=== PATIENT | male | born 2000 | race Caucasian/White ===

== ENCOUNTER 2020-11-14 19:02 | Emergency (ER) | payer SELFPAY ==
[~2020-11-14] VITALS: Ht 167.6 cm; Wt 111.3 kg
[2020-11-14 19:10] VITALS: BP 150/87
[2020-11-14] MEDS ORDERED: CEPH500T PO (19:44)
--- NOTE | 2020-11-14 19:44 | PHYS DOC ---
Past History Past Medical History: No Pertinent History, Other Past Surgical History: No Surgical History Smoking: Non-smoker Additional Smoking Information: 1/2 PACK/DAY Alcohol Use: Occasionally Drug Use: Marijuana General Adult EDM: Chief Complaint: SKIN RASH/ABSCESS HPI: HPI: Patient is a 19-year-old male who presents with right-sided facial pain. Patient states "on Sunday my face started hurting and I noticed I had a bump by my cheek". Patient reports taking an Aleve on Sunday with little relief. Patient denies any issues with swallowing. Denies shortness of breath. Denies fever. Denies any health history. Review of Systems: Review of Systems: Constitutional: Denies fever or chills Eyes: Denies change in visual acuity HENT: Denies nasal congestion or sore throat Respiratory: Denies cough or shortness of breath Cardiovascular: Denies chest pain or edema GI: Denies abdominal pain, nausea, vomiting, bloody stools or diarrhea : Denies dysuria Musculoskeletal: Denies back pain or joint pain Integument: Reports bump to the right side of his face, pain Neurologic: Denies headache, focal weakness or sensory changes Endocrine: Denies polyuria or polydipsia Lymphatic: Denies swollen glands Psychiatric: Denies depression or anxiety Allergies: Allergies: Allergies Coded Allergies Type Severity Reaction Last Updated Verified No Known Drug Allergies 11/02/14 No Physical Exam: PE: Constitutional: Well developed, well nourished, no acute distress, non-toxic appearance. [] HENT: Normocephalic, atraumatic, bilateral external ears normal, oropharynx moist, no oral exudates, nose normal. [] Eyes: PERRLA, EOMI, conjunctiva normal, no discharge. [] Neck: Normal range of motion, no tenderness, supple, no stridor. [] Cardiovascular:Heart rate regular rhythm, no murmur [] Lungs & Thorax: Bilateral breath sounds clear to auscultation [] Abdomen: Bowel sounds normal, soft, no tenderness, no masses, no pulsatile masses. [] Skin: Warm, dry, no erythema, swelling to right side of cheek Back: No tenderness, no CVA tenderness. [] Extremities: No tenderness, no cyanosis, no clubbing, ROM intact, no edema. [] Neurologic: Alert and oriented X 3, normal motor function, normal sensory function, no focal deficits noted. [] Psychologic: Affect normal, judgement normal, mood normal. [] Current Patient Data: Vital Signs: Vital Signs Date Time Temp Pulse Resp B/P (MAP) Pulse Ox O2 Delivery O2 Flow Rate FiO2 11/14/20 19:10 97.8 104 20 150/87 (108) 97 Room Air EKG: EKG: [] Radiology/Procedures: Radiology/Procedures: [] Heart Score: C/O Chest Pain: No Risk Factors: Risk Factors: DM, Current or recent (<one month) smoker, HTN, HLP, family history of CAD, obesity. Risk Scores: Score 0 - 3: 2.5% MACE over next 6 weeks - Discharge Home Score 4 - 6: 20.3% MACE over next 6 weeks - Admit for Clinical Observation Score 7 - 10: 72.7% MACE over next 6 weeks - Early Invasive Strategies Course & Med Decision Making: Course & Med Decision Making Pertinent Labs and Imaging studies reviewed. (See chart for details) [] Patient is complaining of facial pain on the right side along with a lump. Patient most likely has a infected hair follicle. Starting patient on cephalexin to treat infection. Patient instructed to take ibuprofen for discomfort. If symptoms do not improve patient needs to follow back up with PCP or return to the emergency room for further evaluation. Mercedes Disclaimer: Mercedes Disclaimer: This electronic medical record was generated, in whole or in part, using a voice recognition dictation system. Departure Departure: Impression: Primary Impression: Hair follicle infection Disposition: 01 DC HOME SELF CARE/HOMELESS Condition: STABLE Referrals: PCP,NO (PCP) Patient Instructions: Skin Infections Additional Instructions: Please take ibuprofen at home for discomfort. I have prescribed you an antibiotic to take, please take as directed. If symptoms do not improve please follow-up with your PCP or return to the emergency room. EMERGENCY DEPARTMENT GENERAL DISCHARGE INSTRUCTIONS Thank you for coming to [facility] (ED) today and trusting us with you care. We trust that you had a positivie experience in our Emergency Department. If you wish to speak to the department management, you may call the director at [phone]. YOUR FOLLOW UP INSTRUCTIONS ARE FOLLOWS: 1. Do you have a private Doctor? If you do not have a private doctor, please ask for a resource list of physicians or clinics that may be able to assist you with follow up care. 2. The Emergency Physician has interpreted your x-rays. The X-Ray specialist will also review them. If there is a change in the findings, you will be notified in 48 hours when at all possible. 3. A lab test or culture has been done, your results will be reviewed and you will be notified if you need a change in treatment. ADDITIONAL INSTRUCTIONS AND INFORMATION: 1. Your care today has been supervised by a physician who is specially trained in emergency care. Many problems require more than one evaluation for a complete diagnosis and treatment. We recommend that you schedule your follow up appointment as recommended to ensure complete treatment of you illness or injury. If you are unable to obtain follow up care and continue to have a problem, or if your condition worsens, we recommend that you return to the ED. 2. We are not able to safely determine your condition over the phone nor are we able to give sound medical advice over the phone. For these safety reasons, if you call for medical advice we will ask you to come to the ED for further evaluation. 3. If you have any questions regarding these discharge instructions please call the ED at [phone]. SAFETY INFORMATION: In the interest of safety, wellness, and injury prevention; we encourage you to wear your sealbelt, if you smoke; quite smoking, and we encourage family to use a protective helmet for bicycling and other sporting events that present an increased risk for head injury. IF YOUR SYMPTOMS WORSEN OR NEW SYMPTOMS DEVELOP, OR YOU HAVE CONCERNS ABOUT YOUR CONDITION; OR IF YOUR CONDITION WORSENS WHILE YOU ARE WAITING FOR YOUR FOLLOW UP APPOINTMENT; EITHER CONTACT YOUR PRIMARY CARE DOCTOR, THE PHYSICIAN WHOSE NAME AND NUMBER YOU WERE GIVEN, OR RETURN TO THE ED IMMEDIATELY. Scripts Cephalexin (CEPHALEXIN) 500 Mg Tablet 500 MG PO BID for infection for 5 Days, #10 TAB Prov: LANI RODRIGUEZ APRN 11/14/20 LANI RODRIGUEZ APRN Nov 14, 2020 19:44
[2020-11-14] MEDS ORDERED: CEPHALEXIN 250 MG CAPSULE PO ONE (19:45)
== END 2020-11-14 20:05 | disposition home or self-care (01) ==
LOC: ER 19:02
DX: L73.8 Other specified follicular disorders (principal); F17.200 Nicotine dependence, unspecified, uncomplicated
CPT/HCPCS: 99283

== ENCOUNTER 2021-06-27 19:44 | Emergency (ER) | payer SELFPAY ==
[~2021-06-27] VITALS: Ht 167.6 cm; Wt 113.6 kg
[~2021-06-27 19:44] MED LIST: CEPH500T PO
[2021-06-27 20:24] VITALS: BP 145/87
[2021-06-27] MEDS ORDERED: IV NORMAL SALINE 1,000ML 1,000 ML IV ONE (20:30)
--- NOTE | 2021-06-27 20:42 | PHYS DOC ---
Past History Past Medical History: No Pertinent History, Other Additional Past Medical Histor: heart valve "issue", describes as prolapse, childhood onset (DRE PORTILLO DESKTOP ANALYST) Past Surgical History: Tonsillectomy (DER PORTILLO DESKTOP ANALYST) Smoking: Non-smoker Additional Smoking Information: smokes marijuana Alcohol Use: None Drug Use: Marijuana (DRE PORTILLO DESKTOP ANALYST) Adult General Chief Complaint Chief Complaint: PSYCH EVALUATION HPI HPI Patient is a 20-year-old male patient presented to the ED today with multiple complaints. Patient states his heart is racing, he states his " thoughts are racing", symptoms have been going on for 2 to 4 days. Patient states he has not been able to sleep for almost 40 hours though he states he has been in bed for 40 hours. Denies any chest pain, shortness of breath. Denies any fever. Denies any coughing or congestion. Denies any suicidal or homicidal ideations. He continues to state "I need to knock me out i have not slept for days". He states he is a frequent user of marijuana but has not used it for a couple days (DRE PORTILLO DESKTOP ANALYST) Review of Systems Review of Systems Constitutional: Denies fever or chills [] Eyes: Denies change in visual acuity, redness, or eye pain [] HENT: Denies nasal congestion or sore throat [] Respiratory: Denies cough or shortness of breath [] Cardiovascular: reports racing heart GI: Denies abdominal pain, nausea, vomiting, bloody stools or diarrhea [] : Denies dysuria or hematuria [] Musculoskeletal: Denies back pain or joint pain [] Integument: Denies rash or skin lesions [] Neurologic: Denies headache, focal weakness or sensory changes [] Psych: reports racing thoughts All other systems were reviewed and found to be within normal limits, except as documented in this note. (DRE PORTILLO DESKTOP ANALYST) Current Medications Current Medications Current Medications Medications (Trade) Dose Ordered Sig/Lauren Start Time Stop Time Status Last Admin Dose Admin Sodium Chloride 1,000 ml @ 1,000 mls/hr 1X ONCE 06/27/21 20:30 06/27/21 21:29 (DRE PORTILLO DESKTOP ANALYST) Allergies Allergies Allergies Coded Allergies Type Severity Reaction Last Updated Verified No Known Drug Allergies 11/02/14 No (DRE PORTILLO DESKTOP ANALYST) Physical Exam Physical Exam Constitutional: Well developed, well nourished, no acute distress, non-toxic appearance. [] HENT: Normocephalic, atraumatic, bilateral external ears normal, oropharynx moist, no oral exudates, nose normal. [] Eyes: PERRLA, EOMI, conjunctiva normal, no discharge. [] Neck: Normal range of motion, no tenderness, supple, no stridor. [] Cardiovascular:Heart rate regular rhythm, no murmur [] Lungs & Thorax: Bilateral breath sounds clear to auscultation [] Abdomen: Bowel sounds normal, soft, no tenderness, no masses, no pulsatile masses. [] Skin: Warm, dry, no erythema, no rash. [] Back: No tenderness, no CVA tenderness. [] Extremities: No tenderness, no cyanosis, no clubbing, ROM intact, no edema. [] Neurologic: Alert and oriented X 3, normal motor function, normal sensory function, no focal deficits noted. [] Psychologic: Affect normal, judgement normal, mood normal. [] (DRE PORTILLO DESKTOP ANALYST) Current Patient Data Vital Signs Vital Signs Date Time Temp Pulse Resp B/P (MAP) Pulse Ox O2 Delivery O2 Flow Rate FiO2 06/27/21 20:24 98.4 88 20 145/87 (106) 98 Room Air (DRE PORTILLO DESKTOP ANALYST) EKG EKG [address] Beckwith sinus rhythm heart rate 75 no STEMI [] (DRE PORTILLO DESKTOP ANALYST) Radiology/Procedures Radiology/Procedures []PROCEDURE: CHEST AP ONLY EXAMINATION: Chest radiograph. VIEWS: Single AP view of the chest COMPARISON: None INDICATION:20 years, Male, tachycardia. FINDINGS: Normal cardiomediastinal silhouette. No focal consolidation. No pleural effusion or pneumothorax. No acute osseous process. IMPRESSION: No acute cardiopulmonary process. Electronically signed by: Fallon Dao DO (06/27/2021 9:52 PM) [facility] DICTATED AND SIGNED BY: FALLON DAO DO DATE: 06/27/212151 CC: EMERGENCY,DEPARTMENT; DRE PORTILLO DESKTOP ANALYST; PCP,NO ~MTH0 0 (DRE PORTILLO DESKTOP ANALYST) Heart Score C/O Chest Pain: N/A Risk Factors: Risk Factors: DM, Current or recent (<one month) smoker, HTN, HLP, family history of CAD, obesity. Risk Scores: Risk Factors: DM, Current or recent (<one month) smoker, HTN, HLP, family history of CAD, obesity. (DRE PORTILLO APRN) Course & Med Decision Making Course & Med Decision Making Pertinent Labs and Imaging studies reviewed. (See chart for details) This is a 20-year-old male patient presenting to the ED today stating his thoughts are racing as well as his heart symptoms for 4 days. Denies any suicidal homicidal ideations. EKG, labs, chest x-ray negative for any acute findings Nevaeh from the PAT team talked to patient. and was given resources for f/u Patient was also given IV fluids in the ED. D/C to home (DRE PORTILLO APRN) Dragon Disclaimer Dragon Disclaimer This electronic medical record was generated, in whole or in part, using a voice recognition dictation system. (DRE PORTILLO APRN) Departure Departure: Impression: Primary Impression: Anxiety Disposition: 01 HOME / SELF CARE / HOMELESS Condition: STABLE Referrals: PCP,NO (PCP) follow up with your doctor in one week Patient Instructions: Anxiety and Panic Attacks Additional Instructions: You were evaluated in the emergency room, you appear to have anxiety. Please follow-up with resources provided by DRE Jones APRN Jun 27, 2021 20:42 KISHOR BECKWITH MD Jul 03, 2021 02:49
[2021-06-27 21:04] LABS: BASO % 0 % (0-3); EOS % 0 % (0-3); HEMATOCRIT 45.7 % (39.0-53.0); HEMOGLOBIN 15.7 g/dL (13.0-17.5); LYMPH % 17 % (24-48); MEAN CORPUSCULAR HEMOGLOBIN 30 pg (25-35); MEAN CORPUSCULAR HGB CONC 34 g/dL (31-37); MEAN CORPUSCULAR VOLUME 88 fL (79-100); MONO # 0.7 x10^3/uL (0.0-1.1); MONO % 6 % (0-9); NEUT % 77 % (31-73); PLATELET COUNT 167 x10^3/uL (140-400); WHITE BLOOD COUNT 11.7 x10^3/uL (4.0-11.0)
[2021-06-27 21:09] LABS: BARBITURATES NEG (NEG); BENZODIAZEPINES NEG (NEG); CANNABINOIDS POS (NEG); COCAINE NEG (NEG); METHADONE NEG (NEG); OPIATES NEG (NEG); PHENCYCLIDINE NEG (NEG)
[2021-06-27 21:10] LABS: BILIRUBIN,URINE SMALL (NEG); CALCIUM 8.8 mg/dL (8.5-10.1); CLARITY,URINE CLEAR; COLOR,URINE AMBER; CREATININE 1.1 mg/dL (0.7-1.3); GFR 85.3; GLUCOSE,URINE NEG (NEG); POTASSIUM 3.4 mmol/L (3.5-5.1)
[2021-06-27 21:11] LABS: BACTERIA,URINE 0 /HPF (0-FEW); NITRITE,URINE NEG (NEG); RBC,URINE 0 /HPF (0-2); UROBILINOGEN,URINE 0.2 mg/dL (0.2 mg/dL); WBC,URINE 0 /HPF (0-4)
[2021-06-27 21:16] LABS: ALBUMIN 4.2 g/dL (3.4-5.0); ALBUMIN/GLOBULIN RATIO 1.4 (1.0-1.7); TOTAL BILIRUBIN 0.4 mg/dL (0.2-1.0); TOTAL PROTEIN 7.1 g/dL (6.4-8.2)
[2021-06-27 21:17] LABS: AMPHETAMINE/METHAMPHETAMINE NEG (NEG)
[2021-06-27 21:18] LABS: ACETAMIN < 2.0 mcg/mL (10-30); ETHANOL < 10 mg/dL (0-10); SALIC < 2.8 mg/dL (2.8-20.0)
--- NOTE | 2021-06-27 21:54 | RAD ---
EXAMINATION: Chest radiograph. VIEWS: Single AP view of the chest COMPARISON: None INDICATION:20 years, Male, tachycardia. FINDINGS: Normal cardiomediastinal silhouette. No focal consolidation. No pleural effusion or pneumothorax. No acute osseous process. IMPRESSION: No acute cardiopulmonary process. Electronically signed by: Jonathan Dao DO (06/27/2021 9:52 PM) [facility]
--- NOTE | 2021-06-27 23:08 | EKG ---
[address] [address] Test Date: 2021-06-27 Test Time: 20:38:50 Pat Name: MORENA SANTIZO Department: Room: Gender: M Massotherapist: : [id number] Requested By: DRE PORTILLO Order Number: [id number] Reading MD: Farhat Russell Measurements Intervals [place] Rate: 75 P: 39 IN: 170 QRS: -6 QRSD: 94 T: 24 QT: 364 QTc: 409 Interpretive Statements SINUS RHYTHM LEFTWARD AXIS Electronically Signed On 06-28-2021 14:19:07 RESIDENTIAL [employer]PET IN[employer]ER by Farhat Russell
== END 2021-06-27 22:18 | disposition home or self-care (01) ==
LOC: ER 19:44
DX: F41.9 Anxiety disorder, unspecified (principal); F12.10 Cannabis abuse, uncomplicated
CPT/HCPCS: 36415; 71045; 80053; 80307; 80329; 81001; 85025; 93005; 96360; 99285; G0480; J7030